=== PATIENT | female | born 1995 | race Two or more races ===

== ENCOUNTER 2022-08-31 14:23 | Emergency (ER) | payer OTHER ==
[~2022-08-31] VITALS: Ht 167.6 cm; Wt 88.5 kg
== END 2022-08-31 19:18 | disposition home or self-care (01) ==
LOC: ER 14:23
DX: S90.31XA Contusion of right foot, initial encounter (principal); W01.0XXA Fall on same level from slipping, tripping and stumbling without subsequent striking against object, initial encounter; Y93.9 Activity, unspecified; Y92.481 Parking lot as the place of occurrence of the external cause

== ENCOUNTER 2022-11-24 08:48 | Outpatient (CLI) | payer OTHER | END 2022-11-24 08:56 | disposition home or self-care (01) | LOC: RX STUDY 08:48 | PROVIDERS: ATTEND Obstetrics & Gynecology Gynecology | DX: N70.11 Chronic salpingitis (principal) ==

== ENCOUNTER 2023-05-01 19:53 | Emergency (ER) | payer OTHER ==
[~2023-05-01] VITALS: Ht 160 cm; Wt 86.2 kg
[2023-05-02] MEDS ORDERED: ZOVIRAX30 GM TOP (04:00)
[2023-05-02] MEDS ORDERED: ORASEP SPRAY30 ML MM (04:00)
== END 2023-05-02 04:05 ==
LOC: ER 19:53
DX: K14.0 Glossitis (principal)

== ENCOUNTER 2025-04-21 14:04 | Outpatient (CLI) | payer OTHER ==
[~2025-04-21 14:04] MED LIST: ORASEP SPRAY30 ML MM; ZOVIRAX30 GM TOP
== END 2025-04-21 14:18 | disposition home or self-care (01) ==
LOC: SONOGRAMA 14:04
PROVIDERS: ATTEND Obstetrics & Gynecology Gynecology
DX: N20.0 Calculus of kidney (principal)

== ENCOUNTER 2025-05-22 12:47 | Outpatient (CLI) | payer OTHER | END 2025-05-22 12:51 | disposition home or self-care (01) | LOC: SONOGRAMA 12:47 | PROVIDERS: ATTEND Obstetrics & Gynecology Gynecology | DX: Z34.03 Encounter for supervision of normal first pregnancy, third trimester (principal) ==